=== PATIENT | female | born 1940 | race Caucasian/White ===

== ENCOUNTER 2021-01-02 18:01 | Emergency (ER) | payer MEDICARE ==
[2021-01-02 19:17] LABS: BASOPHIL 0.6 % (0-2); EOSINOPHIL 0.4 % (0-7); HCT 46.9 % (37.0-47.0); HGB 15.4 g/dl (12.5-16.0); LYMPHOCYTE 10.8 % (15-48); MCH 28.6 pg (25.0-31.0); MCHC 32.8 g/dL (32.0-36.0); MONOCYTE 4.5 % (0-12); MPV 11.5 fL (6.0-9.5); NEUTROPHIL 83.1 % (41-80); NRBC 0; PLT 201 K/uL (150-400); RBC 5.39 M/uL (4.20-5.40); WBC 8.2 K/uL (4.0-10.5)
[2021-01-02 19:51] LABS: ALBUMIN 3.6 g/dL (3.4-5.0); BILIRUBIN - TOTAL 0.6 mg/dL (0.2-1.0); BUN/CREAT RATIO (CALC) 22.1 RATIO; CREATININE 0.95 mg/dL (0.51-0.95); GLOBULIN (CALCULATION) 4.8 g/dL; POTASSIUM 4.5 mmol/L (3.5-5.1); TOTAL PROTEIN 8.4 g/dL (6.4-8.2)
[2021-01-02 20:06] LABS: BILIRUBIN NEGATIVE (NEGATIVE); BLOOD 1+ Ery/uL (NEGATIVE); GLUCOSE (U) 3+ mg/dL (NORMAL); LEUKOCYTES NEGATIVE Leu/uL (NEGATIVE); NITRITE NEGATIVE (NEGATIVE); PROTEIN 2+ mg/dL (NEGATIVE); SPECIFIC GRAVITY 1.025 (1.001-1.030); UROBILINOGEN 0.2 mg/dL (0.2-1.0); pH 5.5 (5.0-9.0)
[2021-01-02 20:10] LABS: CLARITY CLEAR (CLEAR)
[2021-01-02 20:11] LABS: COLOR STRAW (YELLOW)
[2021-01-02 20:15] LABS: SQUAMOUS EPITHELIAL CELLS RARE; TRANSITIONAL EPITHELIAL CELLS RARE; URINARY WBC RARE
[2021-01-03 05:13] LABS: BASOPHIL 0.4 % (0-2); EOSINOPHIL 0.6 % (0-7); HCT 39.1 % (37.0-47.0); LYMPHOCYTE 27.7 % (15-48); MCH 28.8 pg (25.0-31.0); MCHC 33.2 g/dL (32.0-36.0); MCV 86.7 fL (78.0-100.0); MONOCYTE 14.6 % (0-12); NEUTROPHIL 56.3 % (41-80); NRBC 0; PLT 181 K/uL (150-400); RBC 4.51 M/uL (4.20-5.40); RDW 13.1 % (11.5-14.0); WBC 7.8 K/uL (4.0-10.5)
[2021-01-03 05:41] LABS: ALBUMIN 2.7 g/dL (3.4-5.0); BILIRUBIN - TOTAL 0.4 mg/dL (0.2-1.0); BUN/CREAT RATIO (CALC) 22.5 RATIO; CREATININE 1.02 mg/dL (0.51-0.95); GLOBULIN (CALCULATION) 3.6 g/dL; POTASSIUM 3.5 mmol/L (3.5-5.1)
[2021-01-03 05:43] LABS: TOTAL PROTEIN 6.3 g/dL (6.4-8.2)
[2021-01-03] MEDS ORDERED: LIPITOR80 MG PO (14:01)
== END 2021-01-03 14:30 | disposition home or self-care (01) ==
LOC: FER 18:01
PROVIDERS: Emergency Medicine
DX: I66.22 Occlusion and stenosis of left posterior cerebral artery (principal); G81.94 Hemiplegia, unspecified affecting left nondominant side; R20.0 Anesthesia of skin; U07.1 COVID-19; I12.9 Hypertensive chronic kidney disease with stage 1 through stage 4 chronic kidney disease, or unspecified chronic kidney disease; E11.22 Type 2 diabetes mellitus with diabetic chronic kidney disease; E11.65 Type 2 diabetes mellitus with hyperglycemia; N18.30 Chronic kidney disease, stage 3 unspecified; Z88.8 Allergy status to other drugs, medicaments and biological substances; Z79.82 Long term (current) use of aspirin; Z79.02 Long term (current) use of antithrombotics/antiplatelets
CPT/HCPCS: 36415; 70450; 70544; 70548; 70553; 71045; 80053; 81001; 82009; 84484; 85025; 93005; J7030; U0002